=== PATIENT | female | born 1980 | race Two or more races ===

== ENCOUNTER 2019-01-23 07:46 | Day surgery (SDC) | payer OTHER ==
[2019-01-23] MEDS ORDERED: DOXYCYCLINE HY100 M3 PO (10:37)
[2019-01-23] MEDS ORDERED: Tylenol #3 PO (10:37)
== END 2019-01-23 13:30 | disposition home or self-care (01) ==
LOC: CIR.AMB 07:46
DX: O02.1 Missed abortion (principal); Z3A.16 16 weeks gestation of pregnancy

== ENCOUNTER 2023-03-30 08:45 | Inpatient (IN) | payer OTHER ==
[~2023-03-30] VITALS: Ht 157.5 cm; Wt 72.6 kg
[~2023-03-30 08:45] MED LIST: DOXYCYCLINE HY100 M3 PO; Tylenol #3 PO
[2023-03-30 11:03] LABS: HEMATOCRIT 43.4 % (36.0-45.00); HEMOGLOBIN 14.1 g/dL (12.0-15.00); MEAN CELL VOLUME 82.1 fL (80.00-100.00); MEAN CORPUSCULAR HEMOGLOBIN 26.8 pg (27.00-32.0); MEAN CORPUSCULAR HGB CONC 32.6 g/dl (32.0-36.0); PLATELET COUNT 332 K/uL (150-450); RED BLOOD COUNT 5.28 M/uL (4.00-6.00); RED CELL DISTRIBUTION WIDTH 14.3 % (11.5-14.5)
[2023-03-30 11:28] LABS: PH,URINE 5.5 (5.0-8.0); URINE APPEARANCE Clear; URINE BILIRRUBIN Negative (NEGATIVE); URINE BLOOD Negative; URINE COLOR Yellow; URINE GLUCOSE Negative (NEGATIVE); URINE LEUKOCYTE Negative; URINE NITRATE Negative; URINE PROTEIN Negative (NEGATIVE)
[2023-03-30 11:43] LABS: URINE BACTERIA 176.3 uL (0.0-1933); URINE RBC 28.8 uL (0.0-20.8); URINE WBC 2.3 uL (0.0-23.2)
[2023-03-30 11:51] LABS: INR 0.96; PARTIAL THROMBOPLASTIN TIME 24.5 SECONDS (22.0-34.0); PROTHROMBIN TIME 10.1 SECONDS (9.0-11.5)
[2023-03-30 12:08] LABS: ALBUMIN 3.7 gm/dL (3.4-5.0); BILIRUBIN TOTAL 0.43 mg/dL (0.3-1.2); CALCIUM 9.8 mg/dL (8.5-10.1); CREATININE SERUM 0.63 mg/dL (0.55-1.02); GFR 102.66; GLOBULINA 4.3 G/DL (2.4-3.5); POTASSIUM 4.77 mEq/L (3.5-5.1); TSH 1.92 uIU/mL (0.358-3.74)
[2023-04-05 19:46] LABS: HEMATOCRIT 37.5 % (36.0-45.00); HEMOGLOBIN 12.8 g/dL (12.0-15.00); MEAN CELL VOLUME 81.6 fL (80.00-100.00); MEAN CORPUSCULAR HEMOGLOBIN 27.8 pg (27.00-32.0); MEAN CORPUSCULAR HGB CONC 34.1 g/dl (32.0-36.0); PLATELET COUNT 274 K/uL (150-450); RED BLOOD COUNT 4.59 M/uL (4.00-6.00); RED CELL DISTRIBUTION WIDTH 14.1 % (11.5-14.5)
[2023-04-08] MEDS ORDERED: IBU600 MG PO (12:03)
== END 2023-04-08 12:30 | disposition home or self-care (01) | DRG 743 ==
LOC: O/R 04-05 05:43 → OB/GYN 04-05 05:43 → O/R 04-05 15:05 → OB/GYN 04-05 15:07 → O/R 04-06 10:08 → OB/GYN 04-06 10:09
PROVIDERS: ADMIT Obstetrics & Gynecology; ATTEND Obstetrics & Gynecology
PROC: 0UT70ZZ Resection of Bilateral Fallopian Tubes, Open Approach (ICD-10-PCS; 2023-04-05)
PROC: 0UT20ZZ Resection of Bilateral Ovaries, Open Approach (ICD-10-PCS; 2023-04-05)
PROC: 0DNE0ZZ Release Large Intestine, Open Approach (ICD-10-PCS; 2023-04-05)
PROC: 0DNW0ZZ Release Peritoneum, Open Approach (ICD-10-PCS; 2023-04-05)
PROC: 0TJB8ZZ Inspection of Bladder, Via Natural or Artificial Opening Endoscopic (ICD-10-PCS; 2023-04-05)
PROC: 0UT90ZZ Resection of Uterus, Open Approach (ICD-10-PCS; principal; 2023-04-05 07:00)
DX: D25.1 Intramural leiomyoma of uterus (principal); D25.2 Subserosal leiomyoma of uterus; D25.0 Submucous leiomyoma of uterus; N73.6 Female pelvic peritoneal adhesions (postinfective); N83.11 Corpus luteum cyst of right ovary; N83.02 Follicular cyst of left ovary; Z20.822 Contact with and (suspected) exposure to COVID-19; G89.18 Other acute postprocedural pain; N84.0 Polyp of corpus uteri